=== PATIENT | male | born 1970 | race African-American/Black ===

== ENCOUNTER 2018-04-08 12:49 | Emergency (ER) | payer SELFPAY ==
[2018-04-08] MEDS ORDERED: IBUPROFEN 400 MG TAB ONE (13:14)
--- NOTE | 2018-04-08 15:30 | RAD REPORT ---
EXAM DESCRIPTION: RAD - Knee Left 3 View - 04/08/2018 1:47 pm CLINICAL HISTORY: Knee pain status post injury FINDINGS: A lipohemarthrosis is seen. A lucency is present within the inferior aspect of the patella. An 8 millimeter bony/calcific density is present within the intercondylar notch. No dislocation seen IMPRESSION: Lipohemarthrosis in the presence of trauma usually indicates a fracture. Lucency within the inferior aspect of the patella may represent a nondisplaced fracture or junction o f large osteophyte extending off of the patella. 8 millimeter bony/calcific density within the intercondylar notch may represent an acute avulsion fra cture. If clinically indicated further evaluation could be obtained with CAT scan or MRI
--- NOTE | 2018-04-08 15:37 | EDPHYS ---
Physician Documentation [facility] Name: Yuliet Almaraz Age: 47 yrs Sex: Male : 1970 Arrival Date: 04/08/2018 Time: 12:50 Bed 14 Private MD: ED Physician Flip Goldman Historical: - Allergies: 04/08 12:53 No Known Allergies; tw2 - Home Meds: 12:53 None [Active]; tw2 - PSHx: 12:53 None; tw2 - Immunization history:: Adult Immunizations up to date. - Social history:: Smoking status: . - Ebola Screening: : Patient denies travel to an Ebola-affected area in the 21 days before illness onset. Vital Signs: 12:52 BP 142 / 91; Pulse 71; Resp 17; Temp 98.4(O); Pulse Ox 99% on R/A; Pain 6/10; tw2 13:56 BP 141 / 81; Pulse 62; Resp 17; Pulse Ox 99% on R/A; tw2 14:51 BP 142 / 84; Pulse 75; Resp 17; Pulse Ox 99% on R/A; Pain 5/10; tw2 15:29 BP 131 / 84; Pulse 81; Resp 17; Pulse Ox 99% on R/A; tw2 MDM: 12:56 Patient medically screened. cp 04/08 13:04 Order name: XRAY Knee LEFT 3 view; Complete Time: 15:37 cp 04/08 13:59 Order name: Ice pack; Complete Time: 13:59 tw2 04/08 15:07 Order name: Cameron wrap-joint; Complete Time: 15:15 cp 04/08 15:07 Order name: Knee Immobilizer; Complete Time: 15:29 cp 04/08 15:07 Order name: Crutches; Complete Time: 15:29 cp Administered Medications: 13:07 Drug: Ibuprofen 800 mg Route: PO; tw2 14:18 Follow up: Response: No adverse reaction; Pain is decreased tw2 Disposition: 04/08/18 15:37 Discharged to Home. Impression: Fracture of patella - Left. - Condition is Stable. - Discharge Instructions: Knee Immobilizer, Patellar Fracture, Adult. - Prescriptions for Anaprox DS 550 mg Oral Tablet - take 1 tablet by ORAL route every 12 hours As needed; 20 tablet. Tylenol- Codeine #3 300-30 mg Oral Tablet - take 2 tablets by ORAL route every 6 hours As needed; 20 tablet. - Medication Reconciliation Form, Thank You Letter, Antibiotic Education, Prescription Opioid Use, Work release form form. - Follow up: Private Physician; When: Orthopedist in [facility] next week once returned home; Reason: left patella fracture. - Problem is new. - Symptoms have improved. - Notes: Keep knee in immobilizer and when not in immobilizer do not bend knee. Rest, Ice and elevate. Follow-up with orthopedist next week Addendum: 04/19/2018 08:00 Addendum: HPI: Patient is a 47 y/o male who presents to with c/o injury to left knee. c p Patient reports he was getting off trailer when he slipped, causing left knee to get caught between wheel and trailer. Patient reports he felt like knee cap dislocated. 08:05 Addendum: ROS: Constitutional: negative for body aches, chills, fever, poor PO intake. c p Eyes: negative for injury, pain, redness, and discharge. ENT: negative for drainage from ear(s), ear pain, sore throat, difficulty swallowing, difficulty handling secretions. Cardiovascular: positive for edema, negative for chest pain, palpitations. Respiratory: negative for cough, shortness of breath, wheezing. Abdomen/GI: negative for abdominal pain, nausea, vomiting, and diarrhea, constipation. Musculoskeletal/extremity: positive for pain and injury left knee. negative for deformity of left knee. Skin: negative for erythema, rash. Neuro: negative for altered mental status, headache, syncope, weakness. All other systems are negative.. 08:10 Addendum: Exam: Constitutional: The patient appears in no acute distress, alert, awake, c p non-diaphoretic, non-toxic, well developed, well nourished. Head/Face: Normocephalic, atraumatic. Eyes: Periorbital structures: appear normal, Conjunctiva: appear normal, Sclera: no appreciated abnormality, Lids and lashes: appear normal, bilaterally. ENT: External ear(s): are unremarkable, Nose: is normal, Mouth: Lips: moist, Oral mucosa: moist, Posterior pharynx: is normal, airway is patent, no erythema, no exudate. Neck: ROM/movement: is normal, is supple, without pain, no range of motions limitations, no nuchal rigidity. Chest/axilla: Inspection: normal, Palpation: is normal, no crepitus, no tenderness. Cardiovascular: Rate: normal, Rhythm: regular. Respiratory: the patient does not display signs of respiratory distress, Respirations: normal, no use of accessory muscles, no retractions, no splinting, no tachypnea, labored breathing, is not present, Breath sounds: are clear throughout, no decreased breath sounds, no stridor, no wheezing. Abdomen/GI: Exam negative for discomfort, distension, guarding, Inspection: abdomen appears normal. Musculoskeletal/extremity: pain, tenderness to palpation and decreased ROM left knee. Mild joint swelling noted left knee. Perfusion of left lower extremity normal, sensation intact and normal. 08:22 Addendum: Differential diagnosis: fracture, dislocation, contusion, ligament injury. c p Data reviewed: vital signs, nurses notes, radiologic studies, plain films. Counseling: I had a detailed discussion with the patient regarding: the historical points, exam findings, and any diagnostic results supporting the discharge diagnosis, radiology results, the need for outpatient follow up, an orthopedist. Left knee placed in immobilizer and crutches given. Will discharge to home for continued monitoring. 04/22/2018 07:06 Co-signature as Attending Physician, Flip Goldman MD I agree with the assessment and k dr plan of care. Signatures: Dispatcher [employer] EDNJ Flip Goldman MD MD [facility] Manny Olmstead PA PA cp Melonie Guthrie RN RN tw2 Corrections: (The following items were deleted from the chart) 04/08 16:01 15:37 04/08/2018 15:37 Discharged to Home. Impression: Fracture of patella - Left. tw2 Condition is Stable. Forms are Work release form, Medication Reconciliation Form, Thank You Letter, Antibiotic Education, Prescription Opioid Use. Follow up: Private Physician; When: Orthopedist in [facility] next week once returned home; Reason: left patella fracture. Problem is new. Symptoms have improved. cp
--- NOTE | 2018-04-08 15:37 | ER ---
Nurse's Notes [facility] Name: Yuliet Almaraz Age: 47 yrs Sex: Male : 1970 Arrival Date: 04/08/2018 Time: 12:50 Bed 14 Private MD: Diagnosis: Fracture of patella-Left Presentation: 04/08 12:50 Presenting complaint: EMS states: pt was coming down out of his [address] and slipped, tw2 got his knee caught between trailer and the tire, he twisted his knee coming down, no deformity noted, vs stable, cms intact. Transition of care: patient was not received from another setting of care. Onset of symptoms was April 08, 2018. Risk Assessment: Do you want to hurt yourself or someone else? Patient reports no desire to harm self or others. Initial Sepsis Screen: Does the patient meet any 2 criteria? No. Patient's initial sepsis screen is negative. Does the patient have a suspected source of infection? No. Patient's initial sepsis screen is negative. Care prior to arrival: None. 12:50 Method Of Arrival: EMS: [facility] tw2 12:50 Acuity: JACOB 4 tw2 Historical: - Allergies: 12:53 No Known Allergies; tw2 - Home Meds: 12:53 None [Active]; tw2 - PSHx: 12:53 None; tw2 - Immunization history:: Adult Immunizations up to date. - Social history:: Smoking status: . - Ebola Screening: : Patient denies travel to an Ebola-affected area in the 21 days before illness onset. Screenin:59 Abuse screen: Denies threats or abuse. Nutritional screening: No deficits noted. tw2 Tuberculosis screening: No symptoms or risk factors identified. Fall Risk None identified. Assessment: 12:50 General: Appears in no apparent distress. Behavior is calm, cooperative, appropriate tw2 for age. Pain: Complains of pain in left knee. Neuro: Level of Consciousness is awake, alert, obeys commands, Oriented to person, place, time, situation. Cardiovascular: Heart tones S1 S2 Patient's skin is warm and dry. Respiratory: Airway is patent Respiratory effort is even, unlabored, Respiratory pattern is regular, symmetrical, Breath sounds are clear bilaterally. GI: No signs and/or symptoms were reported involving the gastrointestinal system. : EENT: No signs and/or symptoms were reported regarding the EENT system. Derm: No signs and/or symptoms reported regarding the dermatologic system. Musculoskeletal: Circulation, motion, and sensation intact. Swelling present in left knee. 13:56 Reassessment: Patient appears in no apparent distress at this time. No changes from tw2 previously documented assessment. Patient and/or family updated on plan of care and expected duration. Pain level reassessed. Patient is alert, oriented x 3, equal unlabored respirations, skin warm/dry/pink. 14:51 Reassessment: Patient appears in no apparent distress at this time. No changes from tw2 previously documented assessment. 15:29 Reassessment: Patient appears in no apparent distress at this time. No changes from tw2 previously documented assessment. Patient and/or family updated on plan of care and expected duration. Pain level reassessed. 15:50 Reassessment:. tw2 16:01 Reassessment: Patient appears in no apparent distress at this time. No changes from tw2 previously documented assessment. Vital Signs: 12:52 BP 142 / 91; Pulse 71; Resp 17; Temp 98.4(O); Pulse Ox 99% on R/A; Pain 6/10; tw2 13:56 BP 141 / 81; Pulse 62; Resp 17; Pulse Ox 99% on R/A; tw2 14:51 BP 142 / 84; Pulse 75; Resp 17; Pulse Ox 99% on R/A; Pain 5/10; tw2 15:29 BP 131 / 84; Pulse 81; Resp 17; Pulse Ox 99% on R/A; tw2 ED Course: 12:50 Patient arrived in ED. tw2 12:52 Triage completed. tw2 12:52 Arm band placed on. tw2 12:52 Bed in low position. Call light in reach. Side rails up X2. Pulse ox on. NIBP on. tw2 12:52 ice pack applied. tw2 12:55 Manny Olmstead PA is PHCP. cp 12:55 Flip Goldman MD is Attending Physician. cp 13:07 Melonie Guthrie RN is Primary Nurse. tw2 13:47 X-ray completed. Portable x-ray completed in exam room. Patient tolerated procedure jb2 well. 13:48 XRAY Knee LEFT 3 view In Process Unspecified. EDMS 15:29 Assist provider with bone marrow aspiration. Patient did not have IV access during this tw2 emergency room visit. 15:50 Awaiting: disk from xray at this time prior to discharge. tw2 Administered Medications: 13:07 Drug: Ibuprofen 800 mg Route: PO; tw2 14:18 Follow up: Response: No adverse reaction; Pain is decreased tw2 Outcome: 15:37 Discharge ordered by . anabel 16:01 Patient left the ED. tw2 16:01 Discharged to home via wheelchair, with crutches, with significant other. tw2 16:01 Condition: stable 16:01 Discharge instructions given to patient, significant other, Instructed on discharge instructions, follow up and referral plans. no drinking with medication, no driving heavy equipment, medication usage, safety practices, control, Demonstrated understanding of instructions, follow-up care, medications, crutch walking, Prescriptions given X 2. Signatures: Dispatcher [employer] EDMina Go jb2 Manny Olmstead PA PA cp Wise, Tara, RN RN tw2
== END 2018-04-08 16:01 | disposition home or self-care (01) ==
LOC: ER 12:49
DX: S82.002A Unspecified fracture of left patella, initial encounter for closed fracture (principal); W01.198A Fall on same level from slipping, tripping and stumbling with subsequent striking against other object, initial encounter; Y93.89 Activity, other specified; Y92.9 Unspecified place or not applicable
CPT/HCPCS: 99285